=== PATIENT | female | born 1980 | race Hispanic/Latino ===

== ENCOUNTER 2018-04-28 17:54 | Emergency (ER) | payer BC ==
[2018-04-28] MEDS ORDERED: ONDANSETRON HCL 4 MG/2 ML VIAL ONE (18:18)
[2018-04-28] MEDS ORDERED: FAMOTIDINE/PF 20 MG/2 ML VIAL IV ONE (18:18)
[2018-04-28 18:22] LABS: BASOPHILS % (AUTO) 0.2 % (0.0-5.0); EOSINOPHILS % (AUTO) 0.4 % (0.0-8.0); HEMATOCRIT 43.8 % (36-48); LYMPHOCYTES % (AUTO) 14.3 % (21.0-51.0); MEAN CORPUSCULAR HEMOGLOBIN 30.4 pg (27.0-33.0); MEAN CORPUSCULAR HGB CONC 33.8 g/dL (32.0-36.0); MONOCYTES % (AUTO) 5.8 % (3.0-13.0); NEUTROPHILS % (AUTO) 79.3 % (40.0-77.0); NUCLEATED RED BLOOD CELLS 0.1 % (0.0-0.19); PLATELET COUNT (AUTO) 304 K/uL (130-400); RED BLOOD CELL COUNT(AUTO) 4.87 MIL/uL (4.00-5.50); RED CELL DISTRIBUTION WIDTH 12.5 % (11.0-15.5); WHITE BLOOD COUNT (AUTO) 10.4 K/uL (4.8-10.8)
[2018-04-28 18:31] LABS: APPEARANCE,URINE Cloudy (CLEAR); BILIRUBIN,URINE Negative (NEGATIVE); COLOR,URINE Yellow (YELLOW); GLUCOSE, URINE (UA) Negative (NEGATIVE); KETONES,URINE 40 mg/dL (NEGATIVE); LEUKOCYTE ESTERASE ,URINE Negative (NEGATIVE); NITRATE,URINE Positive (NEGATIVE); OCCULT BLOOD,URINE Negative (NEGATIVE); PH,URINE 7.5 (5.0-8.0); PROTEIN,URINE Trace (NEGATIVE); UROBILINOGEN,URINE 0.2 mg/dL (0.2-1.0)
[2018-04-28 18:33] LABS: CREATININE 0.9 mg/dL (0.5-1.5); POTASSIUM 3.4 mmol/L (3.5-5.1)
[2018-04-28 18:34] LABS: INR 0.91 (0.85-1.15); PROTHROMBIN TIME 9.6 SEC (9.6-11.6)
[2018-04-28 18:35] LABS: BACTERIA,URINE Many /HPF (None Seen); RBC,URINE None Seen /HPF (0-1); SQUAMOUS EPITHELIAL CELL,UR 0-2 /HPF (0-2); WBC,URINE 0-1 /HPF (0-1)
[2018-04-28 18:41] LABS: B-TYPE NATRIURETIC PEPTIDE < 5 pg/mL (0-100)
[2018-04-28 18:51] LABS: ALBUMIN 4.1 g/dL (3.5-5.0); BILIRUBIN,TOTAL 0.3 mg/dL (0.2-1.0); TOTAL PROTEIN, SERUM 8.4 g/dL (6.0-8.3)
[2018-04-28] MEDS ORDERED: CEFTRIAXONE SODIUM 1 GM ONE (20:53)
[2018-04-28] MEDS ORDERED: SODIUM CHLORIDE 0.9% 50 ML IV ONE (20:53)
[2018-04-28] MEDS ORDERED: KETOROLAC TROMETHAMINE 15MG/ML ONE (20:53)
== END 2018-04-28 21:34 | disposition home or self-care (01) ==
LOC: EDH 17:54
DX: R07.89 Other chest pain (principal); R11.2 Nausea with vomiting, unspecified; N39.0 Urinary tract infection, site not specified; R20.2 Paresthesia of skin
CPT/HCPCS: 36415; 71045; 80053; 81001; 82550; 83874; 83880; 84484 ×2; 85025; 85610; 85730; 93005 ×2; 94761; 96374; 96375; 99285; J0696; J1885; J2405; J3490

== ENCOUNTER → 2020-07-26 | Outpatient (CLI) | payer OTHER | END | disposition home or self-care (01) | LOC: OIH 11:22 | PROVIDERS: ATTEND Physician Assistant | DX: Z13.6 Encounter for screening for cardiovascular disorders (principal) | CPT/HCPCS: 75571 ==

== ENCOUNTER → 2022-08-14 | Outpatient (CLI) | payer BC ==
[2022-08-14 08:26] LABS: T4 (THYROXINE) 11.1 ug/dL (4.7-13.3); THYROID STIMULATING HORMONE 3.87 uIU/mL (0.36-3.74)
== END | disposition home or self-care (01) ==
LOC: LAB 07:23
PROVIDERS: ATTEND Internal Medicine
DX: Z00.00 Encounter for general adult medical examination without abnormal findings (principal)
CPT/HCPCS: 36415; 84436; 84439; 84443

== ENCOUNTER → 2023-01-21 | Outpatient (CLI) | payer BC | END | disposition home or self-care (01) | LOC: RAH 09:00 | PROVIDERS: ATTEND Obstetrics & Gynecology | DX: Z12.31 Encounter for screening mammogram for malignant neoplasm of breast (principal) | CPT/HCPCS: 77067 ==

== ENCOUNTER → 2024-04-06 | Outpatient (CLI) | payer BC ==
[~2024-04-06] MED LIST: TRAM50TA4 PO
[2024-04-06 16:15] LABS: BASOPHILS # (AUTO) 0.05 K/uL (0.00-0.20); BASOPHILS % (AUTO) 0.6 % (0.0-5.0); EOSINOPHILS # (AUTO) 0.15 K/uL (0.00-0.70); EOSINOPHILS % (AUTO) 1.7 % (0.0-8.0); HEMATOCRIT 44.4 % (36-48); IMMATURE GRANULOCYTE ABSOLUTE 0.03 K/uL (0-1); LYMPHOCYTES # (AUTO) 2.7 K/uL (1.0-4.8); LYMPHOCYTES % (AUTO) 30.6 % (21.0-51.0); MEAN CORPUSCULAR HEMOGLOBIN 30.4 pg (27.0-33.0); MEAN CORPUSCULAR HGB CONC 33.1 g/dL (32.0-36.0); MEAN CORPUSCULAR VOLUME 91.9 fL (79-99); MONOCYTES # (AUTO) 0.6 K/uL (0.1-1.0); MONOCYTES % (AUTO) 7.3 % (3.0-13.0); NEUTROPHILS # (AUTO) 5.2 K/uL (1.8-7.7); NEUTROPHILS % (AUTO) 59.5 % (40.0-77.0); PLATELET COUNT (AUTO) 374 K/uL (130-400); RED BLOOD CELL COUNT(AUTO) 4.83 MIL/uL (4.00-5.50); RED CELL DISTRIBUTION WIDTH 11.6 % (11.0-15.5); WHITE BLOOD COUNT (AUTO) 8.8 K/uL (4.8-10.8)
[2024-04-06 16:23] LABS: CREATININE 0.8 mg/dL (0.5-1.0); POTASSIUM 3.8 mmol/L (3.5-5.1)
[2024-04-06 16:25] LABS: INR <= 0.93 (0.85-1.15); PROTHROMBIN TIME 10.1 SEC (9.6-11.6)
[2024-04-06 16:27] LABS: PARTIAL THROMBOPLASTIN TIME 27.6 SEC (26.3-35.5)
== END | disposition home or self-care (01) ==
LOC: LAB 10:00
PROVIDERS: ATTEND Internal Medicine Cardiovascular Disease
DX: Z01.812 Encounter for preprocedural laboratory examination (principal); I87.1 Compression of vein
CPT/HCPCS: 36415; 80048; 85025; 85610; 85730

== ENCOUNTER 2024-04-22 13:16 | Emergency (ER) | payer BC ==
[~2024-04-22] VITALS: Ht 162.6 cm; Wt 88.5 kg
[2024-04-22 16:41] VITALS: BP 118/76; PULSE 90; RESP 20; TEMP 98.1; O2SAT 99
[2024-04-22] MEDS: HYDROcodone/APAP 5/325 1 TAB TABLET PO STA (16:41)
== END 2024-04-22 16:58 | disposition home or self-care (01) ==
LOC: EDH 13:16
DX: M79.605 Pain in left leg (principal); M79.604 Pain in right leg; E11.9 Type 2 diabetes mellitus without complications; E78.00 Pure hypercholesterolemia, unspecified; I10 Essential (primary) hypertension; Z88.6 Allergy status to analgesic agent; Z90.710 Acquired absence of both cervix and uterus
CPT/HCPCS: 93970

== ENCOUNTER → 2024-05-26 | Outpatient (CLI) | payer BC ==
--- NOTE | 2024-05-27 09:15 | HMCIMG ---
SCREENING MAMMOGRAM REASON: Annual Exam COMPARISON: 01/21/2023 TECHNIQUE: CC and MLO views of the bilateral breasts were performed.CAD was performed as well. FINDINGS: Parenchymal density: There are scattered areas of fibroglandular density. There are no focal mass lesions. There are no pathologic appearing calcifications. There is no evidence of architectural distortion or skin thickening. IMPRESSION: Normal screening mammogram The patient was entered into a reminder system with a target due date for their next mammogram. BI-RADS CATEGORY 1: NEGATIVE Recommend monthly self breast exam as well as annual clinical examination. A negative x-ray should not delay biopsy if a dominant or clinically suspicious mass is present, since 8-10% of cancers are not identified by mammography. Dense breasts particularly, may obscure an underlying neoplasm. Some of these may be detected clinically and therefore, clinical examination is an essential part of breast evaluation.
== END | disposition home or self-care (01) ==
LOC: RAH 14:28
PROVIDERS: ATTEND Internal Medicine
DX: Z12.31 Encounter for screening mammogram for malignant neoplasm of breast (principal); R92.323 Mammographic fibroglandular density, bilateral breasts
CPT/HCPCS: 77067

== ENCOUNTER 2024-12-15 07:06 | Emergency (ER) | payer BC ==
[~2024-12-15] VITALS: Ht 162.6 cm; Wt 90.7 kg
--- NOTE | 2024-12-15 07:51 | ERN ---
ED Note History of Present Illness Stated Complaint: LEFT FOOT PAIN Chief Complaint: FOOT INJURY/PAIN Time Seen by MD: 07:19 Dictation: This is a 44-year-old female who presented to the emergency room with complaints of acute onset of left foot pain about an hour ago. She was in tears an unable to walk or place her foot on the ground. She stated that she has never had this kind of pain before. No history of any injury to the left foot. No fever chills or rigors. Temperature 98 pulse 92 respirations 18 blood pressure 119/88 with a pulse oximetry of 98% on room air Her only past medical history significant for right breast surgery and she is a borderline diabetic. Allergies: Coded Allergies: aspirin (Unverified Allergy, Unknown, 04/07/23) Home Meds Active Scripts Tramadol Hcl (Tramadol HCl) 50 Mg Tablet, 50 MG PO QIDP PRN for PAIN, #15 TAB Prov:KOJO VASQUEZ MD 04/07/23 Past Medical History Past Medical History: Hypertension Surgical History: Hysterectomy Surgical History Other: RIGHT BREAST SURGERY Family History: Negative Social History: Negative RN Note Reviewed/Agreed w/PFSH: Yes Review of System Dictation Constitutional: Negative for fever,chills, and weight loss Eyes: Negative for injury, pain,redness, and discharge ENT: Negative for injury,pain or swelling Cardiovascular: Negative for chest pain, palpitations, and edema Respiratory: Negative for shortness of breath, cough, and wheezing, Abdomen/GI: Negative for abdominal pain, nausea, vomiting, diarrhea, and constipation Back: Negative for injury and pain : Negative for injury, bleeding and discharge MS/Extremity: Negative for injury and deformity. Acute onset of left foot pain at the base of the great toe more on the plantar surface Skin: Negative for rash, and discoloration Neuro: Negative for headache, weakness, numbness, tingling, and seizure Psych: Negative for suicide ideation, homicidal ideation, and hallucinations Initial Vital Sign VS Vital Signs Date Time Temp Pulse Resp B/P (MAP) Pulse Ox O2 Delivery O2 Flow Rate FiO2 12/15/24 07:08 98.1 92 18 119/88 99 Room Air 12/15/24 07:42 0 21 Physical Exam Dictation General: awake, alert, NAD obese Head/Face: Normocephalic, atraumatic Eyes: PERRL, EOMI, vision at baseline ENT: oral cavity clear, TMs clear, no signs of infection Neck: Trachea midline, supple, no nuchal rigidity Cardiovascular: RRR, normal S1/S2, No MRGs, no JVD Respiratory: CTAB, no respiratory distress, No rales or wheezes Abdomen: Soft, non-tender, non-distended, normal bowel sounds, no guarding or rebound. Skin: Warm, dry, normal turgor, no rash MS/Extremity: Pulses equal, no cyanosis, neurovascular intact, FROM mild erythema of the base of the great toe left foot with severe tenderness Neuro: COAx4, GCS 15, strength 5/5, CN 2-12 intact, normal cerebellar exam, normal gait, Psych: Normal behavior, mood, and affect normal Extremities-trace edema without any palpable cords, Homans sign is negative Results (Laboratory/Radiology) Laboratory/Radiology Laboratory Tests Test 12/15/24 09:27 Urine HCG, Qualitative NEGATIVE (NEGATIVE) Labs Reviewed?: Yes X-RAY Comment: REASON: ? acute onset of left foot pain at the base of the great toe-? gouty attack ORDERING PHYSICIAN: CRISTINA GASTELUM MD PROCEDURE: FT 3VW LT - FOOT COMP 3+VWS LT FOOT COMP 3+VWS LT REASON: ? acute onset of left foot pain at the base of the great toe-? gouty attack TECHNIQUE: 3 views were obtained. FINDINGS: There is no evidence of fracture or dislocation. There is no joint effusion. The soft tissues appear unremarkable. There is no evidence of a radiopaque foreign body. IMPRESSION: No acute findings. DICTATED BY: DELBERT GARCIA MD DATE: 12/15/24 1110 ELECTRONICALLY SIGNED BY: DELBERT GARCIA MD DATE: 12/15/24 1113 ED Course ED Course Orders Procedure Category Date Status Time Foot Comp 3+Vws Lt RAD 12/15/24 Resulted 07:45 Colchicine 0.6mg Tab PHA 12/15/24 Complete (Colchicine 0.6mg T 08:00 ,Urine Test LAB 12/15/24 Complete 07:45 Morphine 2mg Syg PHA 12/15/24 Complete (Morphine 2mg Syg) 08:00 Ondansetron 4mg Inj PHA 12/15/24 Complete (Zofran 4mg Inj) 08:30 Current Medications Medications (Trade) Dose Ordered Sig/Kedar Route PRN Reason Start Time Stop Time Status Last Admin Dose Admin Colchicine (COLCHicine 0.6mg TAB) 0.6 mg ONCE ONCE PO 12/15/24 08:00 12/15/24 08:01 DC 12/15/24 08:20 Morphine Sulfate (morPHINE 2MG SYG) 2 mg ONCE ONCE IM 12/15/24 08:00 12/15/24 08:01 DC 12/15/24 08:20 Ondansetron HCl (zoFRAN 4MG INJ) 4 mg ONCE ONCE IV 12/15/24 08:30 12/15/24 08:31 DC 12/15/24 08:20 Vital Signs Date Time Temp Pulse Resp B/P (MAP) Pulse Ox O2 Delivery O2 Flow Rate FiO2 12/15/24 07:42 98.4 88 19 106/76 97 Room Air* 0 21 12/15/24 07:08 98.1 92 18 119/88 99 Room Air We will perform diagnostic labs, imaging and administer medications according to the patient's complaint. Once the results are available, will review and personally interpreted the labs to rule out any acute life-threatening emergency the trach require immediate intervention and treatment. I will then re-evaluate the patient after treatment and diagnostic exams have return to determine whether the patient requires any further testing, can safely be discharged home or need further admission to hospital for additional treatment and evaluation. Medical Decision Making MDM MDM: Differential diagnosis: Gouty attack, hairline fracture, fasciitis, tendinitis Rationale: Tests considered and ordered secondary to shared decision making include: Previous outside records reviewed: Old ER visits. Risk of complication and/or morbidity or mortality of patient management: None Medications-Per medication reconciliation Need for hospitalization: Patient does not meet criteria for hospitalization. Need for emergency major/minor surgery: No There are no social concerns with this patient. Prescription drug management Prescriptions will include symptomatic care Patient's prior external medical records from other ER visits were reviewed by me as indicated. Prior testing and results from previous visits were reviewed. Prior tests were taken into account with medical decision making and resource utilization, independent historian/historians were used to obtain complete medical history. I independently interpreted the test that were performed, results were reviewed by me and considered findings on radiology if ordered. Medical management and examination interpretation discussions were had by me with other qualified healthcare professionals as indicated for the patient's care. Problem List Problem List: (1) Left foot pain (2) Gout attack DX & DISP Disposition: Discharge Departure Impression: Primary Impression: Gout attack Additional Impression: Left foot pain Condition: Stable Scripts Colchicine (Colchicine) 0.6 Mg Tablet 1 TAB PO DAILY for gout pain for 10 Days, #30 TAB 0 Refills Prov: CRISTINA GASTELUM MD 12/15/24 Additional Instructions: Patient and the caregiver have been informed of all the diagnostic tests and the imaging conducted during the today's visit to the emergency room and has v erbalized understanding of the results I have personally reviewed and interpreted all diagnostic exams performed here in the ER today as well as the vital signs documented by the nursing staff. The patient is now being discharged to home and should follow up with the primary care physician or the specialist as directed by the ER staff. Follow-up with primary care provider in 1 to 2 days. Take medications as directed here in the emergency room. Okay to continue home medications unless otherwise discussed during your visit in the emergency room today. Return to your nearest emergency room if symptoms worsen or if there is no improvement. Call 911 if you need immediate assistance. Take Tylenol or Motrin [id number] as needed and if no contraindications are present. Increase oral hydration. A wound culture or urine culture was ordered here in the emergency room department please follow-up with primary care provider and advise them to get repeat ports from our facility. If you had any Bao wrap/splints that were applied here, please do not remove them until you see your primary care or specialty. Referrals: DUGLAS ANGUIANO MD (PCP) CRISTINA GASTELUM MD Dec 15, 2024 07:51
--- NOTE | 2024-12-15 08:10 | NUR ---
explained to patient if she can have someone drive her after giving morphine im, which she stated "i can have someone pick me up"
[2024-12-15] MEDS: COLCHicine 0.6 MG TABLET PO ONE (08:20)
[2024-12-15] MEDS: ondanSETRON 4MG INJ IV ONE (08:20)
[2024-12-15] MEDS: morPHINE 2 MG SYG IM ONE (08:20)
--- NOTE | 2024-12-15 08:31 | NUR ---
administered morphine im mixed with zofran on left deltoid, no complications patient resting in bed, call light in reach
--- NOTE | 2024-12-15 11:13 | HMCIMG ---
FOOT COMP 3+VWS LT REASON: ? acute onset of left foot pain at the base of the great toe-? gouty attack TECHNIQUE: 3 views were obtained. FINDINGS: There is no evidence of fracture or dislocation. There is no joint effusion. The soft tissues appear unremarkable. There is no evidence of a radiopaque foreign body. IMPRESSION: No acute findings.
[2024-12-15] MEDS ORDERED: COLC0.6T73 PO (11:28)
[2024-12-15 12:23] VITALS: BP 127/80; PULSE 74; RESP 19; TEMP 98.5; O2SAT 99
--- NOTE | 2024-12-15 12:25 | NUR ---
dc patient was dc'd by dr mccracken today, i explained to patient to follow up with pcp, provided info based on diagnosis and provided new prescriptions and how to take them, i answered any further questions from patient as well, patient ambulated out of ed to transport in front , no complications
== END 2024-12-15 12:24 | disposition home or self-care (01) ==
LOC: EDH 07:06
DX: M10.072 Idiopathic gout, left ankle and foot (principal); I10 Essential (primary) hypertension; Z88.6 Allergy status to analgesic agent; Z90.710 Acquired absence of both cervix and uterus
CPT/HCPCS: 99284; 96374; 81025; 73630; 96372; J2270; J2405

== ENCOUNTER 2025-02-14 18:31 | Emergency (ER) | payer BC ==
[~2025-02-14] VITALS: Ht 162.6 cm; Wt 90.3 kg
[~2025-02-14 18:31] MED LIST changes: +COLC0.6T73 PO
[2025-02-14 18:38] VITALS: BP 123/81; PULSE 87; RESP 16; TEMP 98.2; O2SAT 96
[2025-02-14 19:04] LABS: ADD UA MICROSCOPIC YES; APPEARANCE,URINE CLOUDY (CLEAR); GLUCOSE, URINE (UA) NEGATIVE (NEGATIVE); LEUKOCYTE ESTERASE ,URINE NEGATIVE Leu/uL (NEGATIVE); NITRATE,URINE NEGATIVE (NEGATIVE); OCCULT BLOOD,URINE NEGATIVE (NEGATIVE)
[2025-02-14 19:09] LABS: SQUAMOUS EPITHELIAL CELL,UR RARE /HPF (0-2); UNCLASSIFIED CRYSTAL 3 /HPF (None Seen)
[2025-02-14 19:11] LABS: IMMATURE GRANULOCYTE ABSOLUTE 0.02 K/uL (0-1); NUCLEATED RED BLOOD CELLS 0.0 % (0.0-0.19); PLATELET COUNT (AUTO) 298 K/uL (130-400); RED BLOOD CELL COUNT(AUTO) 4.70 MIL/uL (4.00-5.50); RED CELL DISTRIBUTION WIDTH 11.9 % (11.0-15.5); WHITE BLOOD COUNT (AUTO) 7.6 K/uL (4.8-10.8)
[2025-02-14 19:19] LABS: CREATININE 0.9 mg/dL (0.5-1.0); GLOMERULAR FILTR. RATE CALC 80.0 mL/min (>90); GLUCOSE,RANDOM 120.0 mg/dL (70-105); SODIUM SERUM 141.0 mmol/L (136-145); UREA NITROGEN, BLOOD 14.0 mg/dL (7-18)
[2025-02-14 19:31] LABS: CREATINE KINASE, TOTAL 57.0 U/L (21-232)
--- NOTE | 2025-02-14 20:16 | HMCIMG ---
EXAM: CR Chest, 1 View. CLINICAL HISTORY: cp COMPARISON: None provided. FINDINGS: LUNGS: The lungs show no infiltrate or other acute finding. PLEURAL SPACES: No pleural effusion or pneumothorax. MEDIASTINUM: Cardiac size and mediastinal contours within normal limits. BONES: No acute osseous abnormality. IMPRESSION: No acute cardiopulmonary pathology is evident. /[place]
--- NOTE | 2025-02-14 20:50 | ERN ---
ED Note History of Present Illness Stated Complaint: ANXIETY, CHEST TIGHTNESS Chief Complaint: Anxiety/Panic Attack Time Seen by MD: 18:35 Time Seen by Midlevel: 18:35 Dictation: The patient is a 44-year-old female with a history of palpitations, hyper tension, hysterectomy who presents to the emergency department with complaints of midsternal chest pain, sensation of feeling anxious, diaphoresis onset 4:30 p.m. patient denies any cough or fevers. Allergies: Coded Allergies: aspirin (Unverified Allergy, Unknown, 04/07/23) Home Meds Active Scripts Colchicine (Colchicine) 0.6 Mg Tablet, 1 TAB PO DAILY for gout pain for 10 Days, #30 TAB 0 Refills Prov:CRISTINA GASTELUM MD 12/15/24 Tramadol Hcl (Tramadol HCl) 50 Mg Tablet, 50 MG PO QIDP PRN for PAIN, #15 TAB Prov:KOJO VASQUEZ MD 04/07/23 Past Medical History Past Medical History: Anxiety, Diabetes-Type II, High Cholesterol, Hypertension Additional Past Medical Hx: GOUT Surgical History: Hysterectomy Surgical History Other: RIGHT BREAST SURGERY Family History: Negative Social History: Negative RN Note Reviewed/Agreed w/PFSH: Yes Review of System Dictation Constitutional: Negative for fever,chills, and weight loss Eyes: Negative for injury, pain,redness, and discharge ENT: Negative for injury,pain or swelling Cardiovascular: Negative for palpitations, and edema positive for chest pain Respiratory: Negative for shortness of breath, cough, and wheezing, Abdomen/GI: Negative for abdominal pain, nausea, vomiting, diarrhea, and constipation Back: Negative for injury and pain : Negative for injury, bleeding and discharge MS/Extremity: Negative for injury and deformity Skin: Negative for rash, and discoloration Neuro: Negative for headache, weakness, numbness, tingling, and seizure Psych: Negative for suicide ideation, homicidal ideation, and hallucinations Initial Vital Sign VS Vital Signs Date Time Temp Pulse Resp B/P (MAP) Pulse Ox O2 Delivery O2 Flow Rate FiO2 02/14/25 18:32 98.2 89 16 123/81 96 Room Air 0 02/14/25 18:38 21 Physical Exam Dictation Vital Signs reviewed General Appearance: Alert, oriented x 3, no acute distress, well developed, nourished. Head and Face: non-traumatic. Eyes: PERRL, pink conjunctivas, eyelid no trauma, anterior chamber with arcus senilis. Ears: Pinnas intact and no signs of trauma or erythema ear canals clear and no discharge TM no erythema Nose: No discharge, no bleeding. Oropharynx: Mouth normal, tongue pink. pharynx clear,no erythema, tonsils no exudates, no abscesses noted, mucous membrane moist Neck: Supple, non-tender, no thyromegaly, no masses, no JVD, no bruits Breast:Deferred Chest:No tenderness, no crepitus, no paradoxical movement, no retractions Lungs:Clear, well-ventilated, symmetric, no rales, no wheezing, no rhonchi, no stridor, good breath sounds bilaterally Heart: Regular rate, regular rhythm, no murmur, no gallops Vascular: no peripheral edema, Abdomen: Soft, positive bowel sounds, nondistended, no guarding, nontender, no rebound, no masses no hepatomegaly, no splenomegaly, no Dick's sign, no hernias. Rectal: Deferred Genital: Deferred Neurological: Normal speech, motor function intact, sensory function intact Musculoskeletal: Neck nontender, full range of motion, back nontender, full range of motion, Extremities: nontender, full range of motion Skin: Color pink, dry, no turgor, no rash, no lacerations, no abrasions, no contusions. Lymphatic: Deferred Results (Laboratory/Radiology) Laboratory/Radiology Laboratory Tests Test 02/14/25 18:50 02/14/25 19:03 02/14/25 20:10 Urine Color LIGHT-YELLOW (YELLOW) Urine Appearance CLOUDY (CLEAR) H Urine pH 7.0 (5.0-8.0) Urine Specific Stephenson 1.021 (1.001-1.031) Urine Protein NEGATIVE mg/dL (NEGATIVE) Urine Glucose (UA) NEGATIVE mg/dL (NEGATIVE) Urine Ketones NEGATIVE mg/dL (NEGATIVE) Urine Occult Blood NEGATIVE (NEGATIVE) Urine Nitrate NEGATIVE (NEGATIVE) Urine Bilirubin NEGATIVE mg/dL (NEGATIVE) Urine Urobilinogen 0.2 mg/dL (0.2-1.0) Urine Leukocyte Esterase NEGATIVE Greg/uL Urine RBC 0-1 /HPF (0-1) Urine WBC 2-5 /HPF (0-1) H Urine Squamous Epithelial Cells RARE /HPF (0-2) Urine Other Crystals (Auto) 3 /HPF (None Seen) Urine Amorphous Crystals (Auto) FEW /LPF (None Seen) Urine Bacteria RARE /HPF (None Seen) White Blood Count 7.6 K/uL (4.8-10.8) Red Blood Count 4.70 MIL/uL (4.00-5.50) Hemoglobin 14.2 g/dL (12.0-16.0) Hematocrit 43.3 % (36-48) Mean Corpuscular Volume 92.1 fL (79-99) Mean Corpuscular Hemoglobin 30.2 pg (27.0-33.0) Mean Corpuscular Hemoglobin Concent 32.8 g/dL (32.0-36.0) Red Cell Distribution Width 11.9 % (11.0-15.5) Platelet Count 298 K/uL (130-400) Mean Platelet Volume 9.5 fL (7.5-10.5) Immature Granulocyte % (Auto) 0.3 % (0-1) Neutrophils (%) (Auto) 57.9 % (40.0-77.0) Lymphocytes (%) (Auto) 30.8 % (21.0-51.0) Monocytes (%) (Auto) 8.1 % (3.0-13.0) Eosinophils (%) (Auto) 2.2 % (0.0-8.0) Basophils (%) (Auto) 0.7 % (0.0-5.0) Neutrophils # (Auto) 4.4 K/uL (1.8-7.7) Lymphocytes # (Auto) 2.4 K/uL (1.0-4.8) Monocytes # (Auto) 0.6 K/uL (0.1-1.0) Eosinophils # (Auto) 0.17 K/uL (0.00-0.70) Basophils # (Auto) 0.05 K/uL (0.00-0.20) Absolute Immature Granulocyte (auto 0.02 K/uL (0-1) Nucleated Red Blood Cells 0.0 % (0.0-0.19) Sodium Level 141 mmol/L (136-145) Potassium Level 4.0 mmol/L (3.5-5.1) Chloride Level 105 mmol/L (101-111) Carbon Dioxide Level 25 mmol/L (21-32) Blood Urea Nitrogen 14 mg/dL (7-18) Creatinine 0.9 mg/dL (0.5-1.0) Glomerular Filtration Rate Calc 80 mL/min (>90) Random Glucose 120 mg/dL (70-105) H Total Calcium 9.0 mg/dL (8.5-10.1) Magnesium Level 2.10 mg/dL (1.80-2.40) Total Creatine Kinase 57 U/L (21-232) Troponin I High Sensitivity < 4 ng/L (4-50) L < 4 ng/L (4-50) L Lipase 42 U/L (16-77) REASON: cp ORDERING PHYSICIAN: EDER VAZQUEZ PROCEDURE: CXR1VW - CHEST 1VW EXAM: CR Chest, 1 View. CLINICAL HISTORY: cp COMPARISON: None provided. FINDINGS: LUNGS: The lungs show no infiltrate or other acute finding. PLEURAL SPACES: No pleural effusion or pneumothorax. MEDIASTINUM: Cardiac size and mediastinal contours within normal limits. BONES: No acute osseous abnormality. IMPRESSION: No acute cardiopulmonary pathology is evident. /[place] Labs Reviewed?: Yes EKG: (+) rhythm (Sinus rhythm) EKG Comment: Date: Time:1843 Ventricular rate:83 CO interval:192 QRS duration:67 QT/QTc:381/449 EKG interpretation: Sinus rhythm Reviewed by ED Attending no STEMI ED Course ED Course Orders Procedure Category Date Status Time Cbc With Differential LAB 02/14/25 Complete 18:45 Chest 1vw RAD 02/14/25 Resulted 18:45 12 Lead Ekg Tracing- EKG 02/14/25 Logged Technical 18:45 Magnesium LAB 02/14/25 Complete 18:45 Creatine Kinase, Total LAB 02/14/25 Complete 18:45 Troponin I High LAB 02/14/25 Complete Sensitivity 18:45 Urinalysis Profile LAB 02/14/25 Complete 18:45 Basic Metabolic Panel LAB 02/14/25 Complete 18:45 Lipase LAB 02/14/25 Complete 18:45 Pantoprazole 40mg Inj PHA 02/14/25 Complete (Protonix 40mg Inj 19:00 Troponin I High LAB 02/14/25 Complete Sensitivity 19:34 Ibuprofen 600 Mg PHA 02/14/25 In Process Tablet (Motrin) 21:00 Current Medications Medications (Trade) Dose Ordered Sig/Kedar Route PRN Reason Start Time Stop Time Status Last Admin Dose Admin Ibuprofen (moTRIN) 600 mg ONCE ONCE PO 02/14/25 21:00 02/14/25 21:01 Pantoprazole Sodium (PROTonix 40MG INJ) 40 mg ONCE ONCE IVP 02/14/25 19:00 02/14/25 19:01 DC 02/14/25 19:10 Vital Signs Date Time Temp Pulse Resp B/P (MAP) Pulse Ox O2 Delivery O2 Flow Rate FiO2 02/14/25 18:38 98.2 87 16 123/81 96 Room Air* 0 21 02/14/25 18:32 98.2 89 16 123/81 96 Room Air 0 HEART Score Response (Comments) Value History: Moderate suspicion (+1) 1 EKG: Normal 0 Age: 45-65yrs (+1) 1 Risk Factors: 1-2 risk factors (+1) 1 Initial Troponin: Normal limit (0) 0 Total 3 Medical Decision Making MDM The patient is a 44-year-old female with a history of palpitations, hypertension, hysterectomy who presents to the emergency department with complaints of midsternal chest pain, sensation of feeling anxious, diaphoresis onset 4:30 p.m. patient denies any cough or fevers. CBC showed no leukocytosis, no anemia, chemistry showed no electrolyte imbalance, normal renal function, negative troponin x2, chest x-ray showed no acute pathology. EKG showed normal sinus rhythm. Patient with low risk for cardiac etiology. On physical exam patient is in no acute distress, nontoxic appearance. Discussed labs and imaging with the patient who reports she feels good enough to go home. 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 Differential diagnosis: Anxiety, ACS, electrolyte imbalance, dehydration, pneumonia, pneumothorax Need for hospitalization: Patient does not meet criteria for hospitalization. There are no social concerns with this patient. DX & DISP Disposition: Discharge Departure Impression: Primary Impression: Chest pain with low risk for cardiac etiology Condition: Stable Additional Instructions: Your labs were unremarkable. Your chest x-ray was normal. Please follow up with your sugar controller as soon as possible. If anything changes or worsens please return to ER. FOLLOW-UP WITH PRIMARY CARE PROVIDER IN 1 TO 2 DAYS. TAKE MEDICATIONS DIRECTED HERE IN THE EMERGENCY ROOM. OKAY TO CONTINUE HOME MEDICATIONS UNLESS OTHERWISE DISCUSSED DURING YOUR VISIT IN THE EMERGENCY ROOM TODAY. RETURN TO YOUR NEAREST EMERGENCY ROOM IF SYMPTOMS WORSEN OR IF THERE IS NO IMPROVEMENT. CALL 911 IF YOU NEED IMMEDIATE ASSISTANCE. TAKE TYLENOL [id number] NEEDED AND IF NO CONTRAINDICATIONS ARE PRESENT. INCREASE ORAL HYDRATION. A WOUND CULTURE OR URINE CULTURE WAS ORDERED HERE IN THE EMERGENCY ROOM DEPARTMENT PLEASE FOLLOW-UP WITH PRIMARY CARE PROVIDER AND ADVISE THEM TO GET REPEAT PORTS FROM OUR FACILITY. IF YOU HAD ANY [place]AMS WRAP/SPLINTS THAT WERE APPLIED HERE, PLEASE DO NOT REMOVE THEM UNTIL YOU SEE YOUR PRIMARY CARE OR SPECIALTY. Referrals: DUGLAS ANGUIANO MD (PCP) Time of Disposition: 21:03 I have reviewed the case, and I agree with, Diagnosis and Plan EDER VAZQUEZ [facility] Feb 14, 2025 20:50
--- NOTE | 2025-02-15 07:09 | EKG ---
[facility] Test Date: 2025-02-14 Test Time: 18:43:17 Pat Name: TJ DEAN Department: [facility] Room: Gender: F [employer] Support Planner: [birth year] : 1980 Requested By: EDER VAZQUEZ Order Number: [id number] Reading MD: Yunior Reid Measurements Intervals [place] Rate: 83 P: 52 MS: 192 QRS: 62 QRSD: 67 T: 62 QT: 381 QTc: 449 Interpretive Statements Sinus rhythm Compared to ECG 04/28/2018 20:52:17 T-wave abnormality no longer present Electronically Signed On 02-15-2025 15:01:28 CDT by Yunior Reid Please click the below link to view image of tracing.
--- NOTE | 2025-02-15 08:34 | EKG ---
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
== END 2025-02-14 21:14 | disposition home or self-care (01) ==
LOC: EDH 18:31
DX: R07.89 Other chest pain (principal); E11.9 Type 2 diabetes mellitus without complications; E78.00 Pure hypercholesterolemia, unspecified; I10 Essential (primary) hypertension; F41.9 Anxiety disorder, unspecified; Z79.899 Other long term (current) drug therapy; Z88.6 Allergy status to analgesic agent; Z90.710 Acquired absence of both cervix and uterus
CPT/HCPCS: 99284; 96374; 71045; 82550; 83735; 84484 ×2; 80048; 83690; 85025; 81001; 36415; 93005 ×2; J2470